=== PATIENT | male | born 1985 | race Caucasian/White ===

== ENCOUNTER 2025-05-09 05:01 | Emergency (ER) | payer BC ==
[2025-05-09] MEDS ORDERED: Sodium Chloride 0.9% 10 ML Syringe FLUSH PRN (05:12)
[2025-05-09] MEDS ORDERED: Naloxone 0.4 MG/ML SDV IVPUSH PRN ×2 (05:14→06:05)
[2025-05-09] MEDS: Ondansetron 4 MG/2 ML SDV IVPUSH ONE ×2 (05:25→06:45)
[2025-05-09] MEDS: Iopamidol 612 MG/ML 100 ML Bottle IVPUSH ONE (05:41)
[2025-05-09 05:45] LABS: BASOPHILS ABSOLUTE AUTO 0.0 K/mm3 (0.0-0.2); BASOPHILS PERCENT AUTO 0.2 % (0.0-1.0); EOSINOPHILS ABSOLUTE AUTO 0.0 K/mm3 (0.0-0.4); EOSINOPHILS PERCENT AUTO 0.0 % (0.0-6.0); IMMATURE GRAN ABSOLUTE AUTO 0.03 K/mm3 (0.00-0.05); IMMATURE GRAN PERCENT AUTO 0.2 % (0.0-0.4); LYMPHOCYTES ABSOLUTE AUTO 1.0 K/mm3 (1.0-4.8); LYMPHOCYTES PERCENT AUTO 7.9 % (24.0-44.0); MEAN PLATELET VOLUME 9.2 fl (9.4-12.4); MONOCYTES ABSOLUTE AUTO 0.9 K/mm3 (0.0-0.8); MONOCYTES PERCENT AUTO 7.2 % (0.0-8.0); NEUTROPHILS ABSOLUTE AUTO 10.1 K/mm3 (1.8-7.7); NEUTROPHILS PERCENT AUTO 84.5 % (41.0-71.0); NRBC ABSOLUTE 0.00 (0.00-0.02); NRBC PERCENT 0.0 % (0.0-0.2); PLATELET COUNT,PLT 247 K/mm3 (150-400); RED BLOOD CELL COUNT 5.22 M/mm3 (4.52-5.90); WHITE BLOOD CELL COUNT,WBC 12.01 K/mm3 (3.9-11.3)
[2025-05-09 05:59] LABS: A/G RATIO 1.0 (1-2); ALANINE AMINOTRANSFERASE,ALT 100.0 U/L (16-63); ASPARTATE AMNIOTRANSFERASE,AST 43.0 U/L (15-37); BILIRUBIN TOTAL 0.6 mg/dL (0.2-1.0); BLOOD UREA NITROGEN,BUN 11.0 mg/dL (7-18); CARBON DIOXIDE,CO2 25.0 mEq/L (21-32); CHLORIDE,CL 106.0 mEq/L (98-107); CREATININE 1.0 mg/dL (0.7-1.3); EST CRCL DRUG DOSING (CG) 101.39 mL/min; ESTIMATED GFR 98.0 mL/min (>60); GLUCOSE RANDOM 125.0 mg/dL (70-99); POTASSIUM,K 3.9 mEq/L (3.5-5.1); PROTEIN TOTAL,TP 7.1 g/dl (6.4-8.2); SODIUM,NA 142.0 mEq/L (136-145)
[2025-05-09 06:57] LABS: LACTIC ACID 2.7 mmol/L (0.4-2.0)
[2025-05-09] MEDS: Magnesium Sulfat/D5W 1GM/100ML 1 GM in Premix Bag 1 BAG IV ONE (08:01)
== END 2025-05-09 09:15 | disposition home or self-care (01) ==
LOC: JD.ED 05:01
DX: G89.18 Other acute postprocedural pain (principal); E83.42 Hypomagnesemia; Z79.899 Other long term (current) drug therapy; Z90.49 Acquired absence of other specified parts of digestive tract
CPT/HCPCS: 36415; 74177; 80053; 83605; 83690; 83735; 85025; 86140; 96361; 96365; 96375; 96376; 99284; J2405; J3475; J7030; Q9967; J1171